=== PATIENT | female | born 1985 | race Caucasian/White ===

== ENCOUNTER → 2017-11-04 | Outpatient (CLI) | payer BC ==
--- NOTE | 2017-11-04 11:03 | US ---
EXAMINATION TYPE: US thyroid st tissue head/neck DATE OF EXAM: 11/04/2017 COMPARISON: 03/01/2015 CLINICAL HISTORY: 31-year-old female E04.2 Nontoxic multinodular goiter. Technique: Multiple sonographic images of the thyroid gland are obtained. FINDINGS: Right Lobe: 4.4 x 1.3 x 1.4 cm Overall Parenchyma: homogenous Left Lobe: 4.9 x 1.1 x 1.9 cm Overall Parenchyma: homogeneous Isthmus Thickness: 0.3 cm NODULES RIGHT: # of nodules measured on right: 1 1. 0.8 X 0.7 x 0.8 cm echogenic solid nodule at the mid pole with well-defined margins. This nodul e is wider than tall and shows intranodular vascularity. Prior size: 1.0 x 0.6 x 0.7 cm LEFT: # of nodules measured on left: 2 1. 1.5 X 0.8 x 1.2 cm isoechoic solid nodule at the lower pole with well-defined margins . This nod ule is wider than tall and shows intranodular vascularity and suggestion of punctate calcifications. Prior size: 1.8 x 1.0 x 1.2 cm 2. 0.9 X 0.4 x 0.8 cm hypoechoic mixed nodule at the mid pole with well-defined margins. This nodul e is wider than tall and shows intranodular vascularity. Prior size: 0.5 x 0.4 x 0.7 cm ISTHMUS: # of nodules measured in the isthmus: 0 Bilateral neck scanned, no evidence of lymphadenopathy. IMPRESSION: 1. Bilateral thyroid nodules, largest measuring 1.5 cm in the left lower pole is decreased from 1.8 c m on 03/01/2015. Suspect that this was sampled on 09/06/2015. 2. A mixed left midpole nodule is slightly larger measuring 9 x 8 mm versus 7 x 5 mm, previously. Fol low-up as indicated.
== END | disposition home or self-care (01) ==
LOC: RADUSWWP 09:00
PROVIDERS: ATTEND Family Medicine
DX: E04.2 Nontoxic multinodular goiter (principal)
CPT/HCPCS: 76536

== ENCOUNTER → 2017-12-19 | Outpatient (CLI) | payer BC ==
[2017-12-19 17:13] LABS: T4, Free (Free Thyroxine) 0.98 ng/dL (0.78-2.19)
== END | disposition home or self-care (01) ==
LOC: LABWHC1 15:54
PROVIDERS: ATTEND Internal Medicine Endocrinology, Diabetes & Metabolism
DX: E04.2 Nontoxic multinodular goiter (principal)
CPT/HCPCS: 36415; 84439; 84443

== ENCOUNTER → 2019-11-27 | Outpatient (CLI) | payer BC ==
--- NOTE | 2019-11-27 13:49 | US ---
EXAMINATION TYPE: US thyroid st tissue head/neck DATE OF EXAM: 11/27/2019 COMPARISON: Prior ultrasound 11/04/2017 CLINICAL HISTORY: E04.2 nontoxic multinodular goiter. Follow up nodules. No thyroid meds. GLAND SIZE: Right Lobe: 4.4 x 1.4 x 1.5 cm Overall Parenchyma: homogenous Left Lobe: 4.4 x 1.6 x 1.3 cm Overall Parenchyma: homogeneous Isthmus Thickness: 0.2 cm NODULES RIGHT: # of nodules measured on right: 1 1. 0.9 X 0.6 x 0.8 cm echogenic nodule at the lower pole with well-defined margins. This nodule is taller than wide and shows intranodular vascularity. Prior size: 0.8 x 0.7 x 0.8 cm LEFT: # of nodules measured on left: 2 1. 1.1 X 1.0 x 0.6 cm isoechoic nodule at the lower pole with well-defined margins. This nodule is wider than tall and shows intranodular vascularity. Prior size: 1.5 x 0.8 x 1.2 cm 2. 0.9 X 0.7 x 0.6 cm hypoechoic nodule at the mid pole with well-defined margins. This nodule is w ider than tall and shows intranodular vascularity. Prior size: 0.9 x 0.4 x 0.8 cm ISTHMUS: # of nodules measured in the isthmus: 0 Bilateral neck scanned, no evidence of lymphadenopathy. IMPRESSION: Findings as above, thyroid nodules are similar in size to prior exam
== END | disposition home or self-care (01) ==
LOC: RADUSMAIN 13:16
PROVIDERS: ATTEND Family Medicine
DX: E04.2 Nontoxic multinodular goiter (principal)
CPT/HCPCS: 76536

== ENCOUNTER 2020-07-15 11:41 | Inpatient (IN) | payer BC ==
--- NOTE | 2020-07-15 12:29 | ED ---
Psych HPI - General Chief Complaint: Psychiatric Symptoms Stated Complaint: Bipolar symptoms Time Seen by Provider: 07/15/20 11:52 Source: patient Mode of arrival: ambulatory - History of Present Illness Initial Comments: Patient is a 34-year-old female presenting to the emergency Department for psychiatric evaluation. Patient states she is diagnosed with bipolar and does take her medication regularly but feels like the last week or so her symptoms have been increasing, she is having more emotional outbursts, very little sleep, very stressed. She states she is also going through a divorce and her work has recently changed and she is having to do a lot more work. Patient denies any alcohol use, drug use. She denies any suicidal or homicidal thoughts. She denies being at this time. She states she occasionally takes Adderall and Xanax which are prescribed to her but does not take these regularly. She has no further complaints at this time. - Related Data Home Medications Medication Instructions Recorded Confirmed ALPRAZolam [Xanax] 0.5 - 1 mg PO DAILY PRN 07/15/20 07/15/20 Dextroamphetamine/Amphetamine 30 mg PO QAM PRN 07/15/20 07/15/20 [Adderall Xr] lamoTRIgine [LaMICtal] 50 mg PO HS 07/15/20 07/15/20 lamoTRIgine [LaMICtal] 200 mg PO HS 07/15/20 07/15/20 Allergies Allergy/AdvReac Type Severity Reaction Status Date / Time No Known Allergies Allergy Verified 07/15/20 12:47 Review of Systems ROS Statement: Those systems with pertinent positive or pertinent negative responses have been documented in the HPI. ROS Other: All systems not noted in ROS Statement are negative. Past Medical History Past Medical History: Thyroid Disorder Additional Past Medical History / Comment(s): recent weight gain 08/2015 History of Any Multi-Drug Resistant Organisms: None Reported Past Surgical History: Tonsillectomy Past Anesthesia/Blood Transfusion Reactions: No Reported Reaction Past Psychological History: Anxiety, Bipolar Smoking Status: Current every day smoker Past Alcohol Use History: Occasional Past Drug Use History: Marijuana - Past Family History Father Family Medical History: Hypertension General Exam - General Exam Comments Initial Comments: GENERAL: Patient is well-developed and well-nourished. Patient is nontoxic and in no acute distress. HEAD: Atraumatic, normocephalic. EYES: Pupils equal round and reactive to light, extraocular movements intact, sclera anicteric, conjunctiva are normal. Eyelids were unremarkable. ENT: TMs normal, nares patent, oropharynx clear without exudates. Moist mucous membranes. NECK: Normal range of motion, supple without lymphadenopathy or JVD. LUNGS: Unlabored respirations. Breath sounds clear to auscultation bilaterally and equal. No wheezes rales or rhonchi. HEART: Regular rate and rhythm without murmurs, rubs or gallops. ABDOMEN: Soft, nontender, normoactive bowel sounds. No guarding, no rebound. No masses appreciated. : Deferred MUSCULOSKELETAL: Normal extremities with adequate strength and normal range of motion, no pitting or edema. No clubbing or cyanosis. NEUROLOGICAL: Patient is alert and oriented x 3. Motor and sensory are also intact. Cranial nerves II through XII grossly intact. Symmetrical smile. Normal speech, normal gait. PSYCH: Normal mood, normal affect. SKIN: Warm, Dry, normal turgor, no rashes or lesions noted. Limitations: no limitations Course Vital Signs 07/15/20 11:44 Temperature 97.9 F Pulse Rate 94 Respiratory 18 Rate Blood Pressure 109/66 O2 Sat by Pulse 100 Oximetry Medical Decision Making - Medical Decision Making Patient is a 34-year-old female, diagnosed with bipolar, presenting for psychiatric evaluation. She denies any suicidal or homicidal thoughts. Her exam is unremarkable. BAT was negative, HCG is not detected, urine drug screen is positive for opiates, amphetamines, benzos, marijuana. Patient was evaluated by EPS and patient will be admitted to the psych unit. - Lab Data Lab Results 07/15/20 07/15/20 Range/Units 12:43 12:43 Urine Color Yellow Urine Appearance Clear (Clear) Urine pH 5.5 (5.0-8.0) Ur Specific [place] 1.024 (1.001-1.035) Urine Protein Negative (Negative) Urine Glucose (UA) Negative (Negative) Urine Ketones Negative (Negative) Urine Blood Negative (Negative) Urine Nitrite Negative (Negative) Urine Bilirubin Negative (Negative) Urine Urobilinogen <2.0 (<2.0) mg/dL Ur Leukocyte Esterase Negative (Negative) Urine HCG, Qual Not Detected (Not Detectd) Urine Opiates Screen Detected H (NotDetected) Ur Oxycodone Screen Not Detected (NotDetected) Urine Methadone Screen Not Detected (NotDetected) Ur Propoxyphene Screen Not Detected (NotDetected) Ur Barbiturates Screen Not Detected (NotDetected) U Tricyclic Antidepress Not Detected (NotDetected) Ur Phencyclidine Scrn Not Detected (NotDetected) Ur Amphetamines Screen Detected H (NotDetected) U Methamphetamines Scrn Not Detected (NotDetected) U Benzodiazepines Scrn Detected H (NotDetected) Urine Cocaine Screen Not Detected (NotDetected) U Marijuana (THC) Screen Detected H (NotDetected) Disposition Clinical Impression: Acute anxiety Disposition: TRANSFER TO PSYCH HOSP/UNIT Condition: Stable Referrals: Jitendra Montgomery DO [Primary Care Provider] - 1-2 days Decision Date: 07/15/20 Decision Time: 17:08
[2020-07-15 12:59] LABS: Appearance,Urine Clear (Clear); Bilirubin,Urine Negative (Negative); Blood,Urine Negative (Negative); Color,Urine Yellow; Glucose,Urine (UA) Negative (Negative); Ketones,Urine Negative (Negative); Leukocyte Esterase,Urine Negative (Negative); Nitrite,Urine Negative (Negative); PH, Urine 5.5 (5.0-8.0); Protein,Urine Negative (Negative); Specific Gravity,Urine 1.024 (1.001-1.035); Urobilinogen,Urine <2.0 mg/dL (<2.0)
[2020-07-15 13:09] LABS: Amphetamine Screen,Urine Detected (NotDetected); Barbiturate Screen,Urine Not Detected (NotDetected); Benzodiazepines Screen,Urine Detected (NotDetected); Cocaine Screen,Urine Not Detected (NotDetected); Methadone Screen, Urine Not Detected (NotDetected); Opiate Screen,Urine Detected (NotDetected); Oxycodone Screen, Urine Not Detected (NotDetected); Phencyclidine Screen,Urine Not Detected (NotDetected); Tricyclic Antidepressant,Urine Not Detected (NotDetected); Urn Cannabinoid Scrn Detected (NotDetected)
[2020-07-15] MEDS ORDERED: MAG HYDROX/AL HYDROX/SIMETH 30 ML CUP PO PRN (17:15)
[2020-07-15] MEDS ORDERED: ACETAMINOPHEN TAB 325 MG TAB PO PRN (17:15)
[2020-07-15] MEDS ORDERED: ZIPRASIDONE 20 MG VIAL IM PRN (17:15)
[2020-07-15] MEDS ORDERED: MAGNESIUM HYDROXIDE 2,400 MG/10 ML CUP PO PRN (17:15)
[2020-07-15] MEDS ORDERED: ALPRAZolam 1 MG TAB PO PRN (17:18)
[2020-07-15] MEDS: NICOTINE 21MG/24HR PATCH TRANSDERM SCH (20:18)
[2020-07-15] MEDS ORDERED: lamoTRIgine 100 MG TAB PO SCH (21:00)
[2020-07-15] MEDS ORDERED: lamoTRIgine 25 MG TAB PO SCH (21:00)
[2020-07-16 08:14] LABS: Basophils % (A) 1 %; Eosinophils # (A) 0.3 k/uL (0-0.7); Eosinophils % (A) 6 %; HCT 45.5 % (34.0-46.0); HGB 14.3 gm/dL (11.4-16.0); Lymphocytes # (A) 2.2 k/uL (1.0-4.8); Lymphocytes % (A) 35 %; MCH 31.5 pg (25.0-35.0); MCHC 31.4 g/dL (31.0-37.0); MCV 100.5 fL (80.0-100.0); Mean Platelet Volume 7.9; Monocytes # (A) 0.4 k/uL (0-1.0); Monocytes % (A) 7 %; Neutrophils # (A) 3.1 k/uL (1.3-7.7); Neutrophils % (A) 50 %; Platelet Count 291 k/uL (150-450); RBC 4.53 m/uL (3.80-5.40); RDW 12.5 % (11.5-15.5); WBC 6.1 k/uL (3.8-10.6)
[2020-07-16 08:25] LABS: ALT 18 U/L (4-34); AST 21 U/L (14-36); African American GFR (CKD) >90 (>60 ml/min/1.73 sqM); Albumin 4.4 g/dL (3.5-5.0); Alkaline Phosphatase 60 U/L (38-126); Anion Gap 4 mmol/L; Blood Urea Nitrogen 13 mg/dL (7-17); Calcium 9.6 mg/dL (8.4-10.2); Carbon Dioxide 29 mmol/L (22-30); Chloride 106 mmol/L (98-107); Cholesterol 188 mg/dL (<200); Glucose 108 mg/dL (74-99); HDL Cholesterol 68 mg/dL (40-60); LDL Cholesterol,Calculated 111 mg/dL (0-99); Non-African American GFR(CKD) >90 (>60 ml/min/1.73 sqM); Potassium 5.2 mmol/L (3.5-5.1); Sodium 139 mmol/L (137-145); Triglycerides 43 mg/dL (<150)
[2020-07-16] MEDS ORDERED: NICOTINE 21MG/24HR PATCH TRANSDERM SCH (09:00)
[2020-07-16] MEDS ORDERED: INFLUENZA VACCINE (6 MOS+) 60 MCG/0.5 ML SYRINGE IM ONE (10:00)
[2020-07-16] MEDS: NICOTINE 21MG/24HR PATCH TRANSDERM SCH ×2 (10:29→12:10)
[2020-07-16 13:08] LABS: Hemoglobin A1C 4.8 % (4.0-6.0)
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
[2020-07-16] MEDS: MELATONIN 5 MG TABLET PO SCH (21:26)
[2020-07-16] MEDS: lamoTRIgine 100 MG TAB PO SCH (21:26)
[2020-07-16] MEDS: traZODone HCL 50 MG TAB PO SCH (21:27)
[2020-07-17] MEDS: NICOTINE 21MG/24HR PATCH TRANSDERM SCH (10:26)
[2020-07-17] MEDS: NICOTINE 14MG/24HR PATCH TRANSDERM SCH (12:05)
--- NOTE | 2020-07-17 13:17 | P.PN ---
Subjective Progress Note Date: 07/17/20 Principal diagnosis: Bipolar II with mixed symptoms of mild racing thoughts and significant depression SUBJECTIVE:She says that she is feeling more stable and hopeful and does not want to adjust medications, but she did let me review that her current medication does not help the racing component of her illness and she might want to consider trileptal. I also suggested that Adderall was dangerous in the possibility of provoking racing thoughts and that she might want a true stabilizer such as trileptal and a smoother stimulant for her ADD such as vyvanse. OBJECTIVE: Vital signs: temp 98.1 resp 16 heart rate 70 blood pressure 100/56 Labs:potassium is slightly high at 5.2 the rest of her hematology and general chem and urinalysis are not concerning but her toxicology was positive for opiates, amphetamines, benzos, and marijuana. STAFF REPORT:she attends group and does well She denies any suicidal or homicidal ideas MENTAL STATUS: Appearance: basic ADL'S adequate Gait and station:normal Speech:normal in rate and volume Eye contact: good Behavior: cooperative Affect:open and appropriate No evidence or acknowlegment of voices or delusions Orientation: good to person place and time and circumstances MEDICATIONS:increased Lamictal to 300 prn Xanax Trazodone 50 and Melatonin 5 which worked well last night ASSESSMENT:patient is cooperative and still too anxious PLAN: no change Objective - Vital Signs Vital signs: Vital Signs Temp 98.1 F 07/17/20 13:05 Pulse 70 07/17/20 05:56 Resp 16 07/17/20 05:56 BP 100/56 07/17/20 05:56 Pulse Ox 96 07/17/20 05:56 Intake & Output 07/16/20 07/17/20 07/17/20 19:59 06:59 18:59 Weight 92.9 kg - Labs CBC & Chem 7: 07/16/20 07:38 07/16/20 07:38
[2020-07-17] MEDS: MELATONIN 5 MG TABLET PO SCH (20:52)
[2020-07-17] MEDS: lamoTRIgine 100 MG TAB PO SCH (20:52)
[2020-07-17] MEDS: traZODone HCL 50 MG TAB PO SCH (20:52)
[2020-07-18] MEDS: NICOTINE 14MG/24HR PATCH TRANSDERM SCH (08:32)
[2020-07-18] MEDS ORDERED: ALPRAZolam 1 MG TAB PO PRN (10:56)
[2020-07-18] MEDS ORDERED: traZODone HCL 50 MG TAB PO PRN (10:58)
[2020-07-18] MEDS: busPIRone HCl 10 MG TAB PO PRN ×2 (11:06→18:36)
--- NOTE | 2020-07-18 11:11 | P.PN ---
Progress Note - Text Progress Note Date: 07/18/20 Interval History: Patient was seen sitting in a group today and was directable and agreeable to speak with senior copywriter in the office. Patient was pleasant and polite with senior copywriter during conversation. 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 She states that she is also experiencing racing thoughts and anxiety during the day. Patient claims that she has been trying to go to groups up or dissipate as best she can. Patient states that her mood has gradually been getting better on the Lamictal and wants to remain the same dose as it was already increased to 300 mg. She states that she did not sleep well last night on the trazodone and states that "I felt restless". She claims that usually she has fair sleep at home. Patient was agreeable to have her melatonin increased. Pumping Plant Operator spoke with patient about other medication options to help her with her mood stabilization and her racing thoughts however patient declined most of them however was acceptable of taking BuSpar as needed for anxiety. She claims she has a fair appetite. At this time patient denies any suicidal or homical ideations, intent or plan. Patient denies any auditory, visual hallucinations and denies any paranoia or delusions. Mental Status Exam: General Appearance: Patient appears to be stated age is alert, directable, and cooperative. Wearing street clothing. Behavior: Patient is calmly seated without any agitated behavior. Speech: Patient's speech is fluent and nonpressured. Mood/Affect: Mood is improving mildly, admits to anxiety, affect is congruent Suicidality/Homicidality: Patient denies having any suicidal or homicidal ideation intent or plan. Perceptions: Patient denies any visual hallucinations and denies any auditory hallucinations Though content/process: There is no evidence of any delusional thought content and thought process is linear and goal-directed. Focused on medications. Memory and concentration: AOX3, grossly intact for the purposes of this session Judgment and insight: Improving mildly Assessment Bipolar disorder, mixed features Anxiety disorder unspecified Cannabis use disorder Nicotine dependence Plan: -Patient continues to meet criteria for inpatient psychiatric admission for symptom stabilization and safety. Patient has signed adult voluntary form and medication consent and was placed in patient's chart. -Medications: Continue Lamictal 300 mg daily at bedtime for mood stabilization, decrease Xanax to 1 mg twice a day when necessary for anxiety. Patient is agreeable to try BuSpar today 10 mg 3 times a day when necessary for anxiety. Increase melatonin to 10 mg daily at bedtime for insomnia. Switched trazodone to 50 mg daily at bedtime when necessary for insomnia. -When necessary xanax and Geodon for agitation/aggression. -NRT - nicotine patch -SW on board for discharge planning. Encouraged the patient to participate in milieu. Likely discharge tomorrow if patient does well overnight.
[2020-07-18] MEDS: lamoTRIgine 100 MG TAB PO SCH (20:05)
[2020-07-18] MEDS ORDERED: MELATONIN 5 MG TABLET PO SCH (21:00)
[2020-07-19 04:28] VITALS: BP 116/65; PULSE 79; RESP 16; TEMP 97.7
[2020-07-19] MEDS: NICOTINE 14MG/24HR PATCH TRANSDERM SCH (08:46)
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
== END 2020-07-19 10:53 | disposition home or self-care (01) | DRG 885 ==
LOC: EC 11:41 → 3MHU 17:10
PROVIDERS: ADMIT Psychiatry & Neurology Psychiatry; ATTEND Psychiatry & Neurology Psychiatry
DX: F31.60 Bipolar disorder, current episode mixed, unspecified (principal); E07.9 Disorder of thyroid, unspecified; F41.9 Anxiety disorder, unspecified; F17.200 Nicotine dependence, unspecified, uncomplicated; F98.8 Other specified behavioral and emotional disorders with onset usually occurring in childhood and adolescence; F12.10 Cannabis abuse, uncomplicated; G47.00 Insomnia, unspecified; Z79.899 Other long term (current) drug therapy; Z98.890 Other specified postprocedural states; Z82.49 Family history of ischemic heart disease and other diseases of the circulatory system
CPT/HCPCS: 80053; 80061; 80306; 81003; 81025; 82075; 83036; 84443; 85025; 90686; 99285

== ENCOUNTER → 2020-07-20 | Outpatient (CLI) | payer BC | END | disposition home or self-care (01) | LOC: LABWHC1 14:11 | PROVIDERS: ATTEND Psychiatry & Neurology Psychiatry | DX: Z20.828 Contact with and (suspected) exposure to other viral communicable diseases (principal) | CPT/HCPCS: U0003; C9803 ==

== ENCOUNTER 2021-01-30 04:09 | Inpatient (IN) | payer BC ==
--- NOTE | 2021-01-30 04:58 | XR ---
EXAM: XR Chest, 2 Views CLINICAL HISTORY: ITS.REASON XR Reason: dyspnea TECHNIQUE: Frontal and lateral views of the chest. COMPARISON: No relevant prior studies available. FINDINGS: Lungs: Mild streaky opacities in the perihilar regions with questionable peribronchial cuffing. The lungs are otherwise clear. The pulmonary vasculature demonstrates no significant radiographic abnormality. Pleural space: Unremarkable. No pneumothorax. No large pleural effusion. Heart: Unremarkable. No cardiomegaly. Mediastinum: Otherwise, no significant abnormality. The trachea is midline. Bones/joints: Hypertrophic osteophyte changes noted anteriorly at several levels. No acute osseous abnormality. Soft tissues: Surgical clips noted at the thoracic inlet bilaterally. IMPRESSION: Mild streaky opacities in the perihilar regions with questionable peribronchial cuffing. Findings may represent subtle interstitial infection, reactive airways disease or bronchiolitis. No lobar consolidation. No large pleural effusion or pneumothorax.
--- NOTE | 2021-01-30 05:35 | ED ---
SOB HPI - General Chief Complaint: Shortness of Breath Stated Complaint: ANGIE Time Seen by Provider: 01/30/21 04:20 Source: patient, family Mode of arrival: wheelchair Limitations: no limitations - History of Present Illness MD Complaint: shortness of breath, cough -: hour(s) Severity: mild Quality: aching Consistency: constant Improves With: nothing Worsens With: nothing Associated Symptoms: cough Treatments Prior to Arrival: none - Related Data Home Medications Medication Instructions Recorded Confirmed Brexpiprazole [Rexulti] 2 mg PO DAILY 01/30/21 01/30/21 busPIRone HCl [Buspar] 20 mg PO BID 01/30/21 01/30/21 lamoTRIgine [LaMICtal] 300 mg PO HS 01/30/21 01/30/21 Previous Rx's Medication Instructions Recorded ALPRAZolam [Xanax] 1 mg PO BID PRN tab 07/19/20 Albuterol Inhaler [Ventolin Hfa 2 puff INHALATION Q6H PRN #1 puff 02/01/21 Inhaler] Azithromycin [Zithromax] 500 mg PO DAILY #3 tab 02/01/21 Allergies Allergy/AdvReac Type Severity Reaction Status Date / Time No Known Allergies Allergy Verified 01/30/21 10:21 Review of Systems ROS Statement: Those systems with pertinent positive or pertinent negative responses have been documented in the HPI. ROS Other: All systems not noted in ROS Statement are negative. Constitutional: Denies: fever, chills Respiratory: Reports: cough, dyspnea Cardiovascular: Denies: chest pain, palpitations, dyspnea on exertion Gastrointestinal: Denies: abdominal pain, nausea, vomiting Genitourinary: Denies: dysuria, hematuria Musculoskeletal: Denies: back pain Skin: Denies: rash Neurological: Reports: headache. Denies: weakness, numbness Past Medical History Past Medical History: Thyroid Disorder Additional Past Medical History / Comment(s): recent weight gain 08/2015 History of Any Multi-Drug Resistant Organisms: None Reported Past Surgical History: Tonsillectomy Past Anesthesia/Blood Transfusion Reactions: No Reported Reaction Past Psychological History: Anxiety, Bipolar, Depression Smoking Status: Former smoker Past Alcohol Use History: Occasional Past Drug Use History: Marijuana - Past Family History Father Family Medical History: Hypertension General Exam Limitations: no limitations General appearance: alert, in no apparent distress Head exam: Present: atraumatic, normocephalic Eye exam: Present: normal appearance. Absent: scleral icterus, conjunctival injection ENT exam: Present: normal oropharynx Respiratory exam: Present: rales. Absent: respiratory distress, wheezes, rhonchi, stridor, chest wall tenderness, accessory muscle use, decreased breath sounds Cardiovascular Exam: Present: regular rate, normal rhythm, normal heart sounds. Absent: systolic murmur, diastolic murmur, rubs, gallop GI/Abdominal exam: Present: soft. Absent: distended, tenderness, guarding, rebound, rigid, mass Extremities exam: Present: normal inspection, normal capillary refill. Absent: pedal edema, calf tenderness Back exam: Present: normal inspection. Absent: CVA tenderness (R), CVA tenderness (L) Neurological exam: Present: alert Skin exam: Present: warm, dry, intact, normal color. Absent: rash Course Vital Signs 01/30/21 01/30/21 01/30/21 04:12 04:20 04:24 Temperature 98.0 F Pulse Rate 101 H Respiratory 20 24 Rate Blood Pressure 118/78 O2 Sat by Pulse 90 L 85 L 92 L Oximetry 01/30/21 01/30/21 01/30/21 04:57 06:00 08:11 Temperature Pulse Rate 98 108 H 103 H Respiratory 20 18 18 Rate Blood Pressure 111/64 100/63 O2 Sat by Pulse 91 L 95 96 Oximetry 01/30/21 08:52 Temperature 98.0 F Pulse Rate 103 H Respiratory 18 Rate Blood Pressure 100/63 O2 Sat by Pulse 96 Oximetry Medical Decision Making - Lab Data Result diagrams: 01/30/21 05:29 01/30/21 05:29 Lab Results 01/30/21 01/30/21 01/30/21 Range/Units 04:29 05:29 05:29 WBC 16.6 H (3.8-10.6) k/uL RBC 4.35 (3.80-5.40) m/uL Hgb 13.1 (11.4-16.0) gm/dL Hct 41.6 (34.0-46.0) % MCV 95.7 (80.0-100.0) fL MCH 30.1 (25.0-35.0) pg MCHC 31.5 (31.0-37.0) g/dL RDW 12.8 (11.5-15.5) % Plt Count 349 (150-450) k/uL MPV 7.3 Neutrophils % 86 % Lymphocytes % 8 % Monocytes % 2 % Eosinophils % 3 % Basophils % 0 % Neutrophils # 14.3 H (1.3-7.7) k/uL Lymphocytes # 1.3 (1.0-4.8) k/uL Monocytes # 0.3 (0-1.0) k/uL Eosinophils # 0.5 (0-0.7) k/uL Basophils # 0.1 (0-0.2) k/uL D-Dimer 0.37 (<0.60) mg/L FEU Sodium (137-145) mmol/L Potassium (3.5-5.1) mmol/L Chloride (98-107) mmol/L Carbon Dioxide (22-30) mmol/L Anion Gap mmol/L BUN (7-17) mg/dL Creatinine (0.52-1.04) mg/dL Est GFR (CKD-EPI)AfAm (>60 ml/min/1.73 sqM) Est GFR (CKD-EPI)NonAf (>60 ml/min/1.73 sqM) Glucose (74-99) mg/dL Lactic Ac Sepsis Rflx Plasma Lactic Acid Nate (0.7-2.0) mmol/L Calcium (8.4-10.2) mg/dL Total Bilirubin (0.2-1.3) mg/dL AST (14-36) U/L ALT (4-34) U/L Alkaline Phosphatase (38-126) U/L NT-Pro-B Natriuret Pep pg/mL Total Protein (6.3-8.2) g/dL Albumin (3.5-5.0) g/dL Procalcitonin (0.02-0.09) ng/mL Coronavirus (PCR) Not Detected (Not Detectd) 01/30/21 01/30/21 01/30/21 Range/Units 05:29 05:29 05:29 WBC (3.8-10.6) k/uL RBC (3.80-5.40) m/uL Hgb (11.4-16.0) gm/dL Hct (34.0-46.0) % MCV (80.0-100.0) fL MCH (25.0-35.0) pg MCHC (31.0-37.0) g/dL RDW (11.5-15.5) % Plt Count (150-450) k/uL MPV Neutrophils % % Lymphocytes % % Monocytes % % Eosinophils % % Basophils % % Neutrophils # (1.3-7.7) k/uL Lymphocytes # (1.0-4.8) k/uL Monocytes # (0-1.0) k/uL Eosinophils # (0-0.7) k/uL Basophils # (0-0.2) k/uL D-Dimer (<0.60) mg/L FEU Sodium 139 (137-145) mmol/L Potassium 3.9 (3.5-5.1) mmol/L Chloride 104 (98-107) mmol/L Carbon Dioxide 26 (22-30) mmol/L Anion Gap 9 mmol/L BUN 16 (7-17) mg/dL Creatinine 0.73 (0.52-1.04) mg/dL Est GFR (CKD-EPI)AfAm >90 (>60 ml/min/1.73 sqM) Est GFR (CKD-EPI)NonAf >90 (>60 ml/min/1.73 sqM) Glucose 118 H (74-99) mg/dL Lactic Ac Sepsis Rflx Plasma Lactic Acid Nate 2.1 H* (0.7-2.0) mmol/L Calcium 9.2 (8.4-10.2) mg/dL Total Bilirubin 0.5 (0.2-1.3) mg/dL AST 22 (14-36) U/L ALT 21 (4-34) U/L Alkaline Phosphatase 80 (38-126) U/L NT-Pro-B Natriuret Pep 480 pg/mL Total Protein 5.7 L (6.3-8.2) g/dL Albumin 3.5 (3.5-5.0) g/dL Procalcitonin (0.02-0.09) ng/mL Coronavirus (PCR) (Not Detectd) 01/30/21 01/30/21 01/30/21 Range/Units 06:17 08:15 09:06 WBC (3.8-10.6) k/uL RBC (3.80-5.40) m/uL Hgb (11.4-16.0) gm/dL Hct (34.0-46.0) % MCV (80.0-100.0) fL MCH (25.0-35.0) pg MCHC (31.0-37.0) g/dL RDW (11.5-15.5) % Plt Count (150-450) k/uL MPV Neutrophils % % Lymphocytes % % Monocytes % % Eosinophils % % Basophils % % Neutrophils # (1.3-7.7) k/uL Lymphocytes # (1.0-4.8) k/uL Monocytes # (0-1.0) k/uL Eosinophils # (0-0.7) k/uL Basophils # (0-0.2) k/uL D-Dimer (<0.60) mg/L FEU Sodium (137-145) mmol/L Potassium (3.5-5.1) mmol/L Chloride (98-107) mmol/L Carbon Dioxide (22-30) mmol/L Anion Gap mmol/L BUN (7-17) mg/dL Creatinine (0.52-1.04) mg/dL Est GFR (CKD-EPI)AfAm (>60 ml/min/1.73 sqM) Est GFR (CKD-EPI)NonAf (>60 ml/min/1.73 sqM) Glucose (74-99) mg/dL Lactic Ac Sepsis Rflx Y Plasma Lactic Acid Nate 1.5 (0.7-2.0) mmol/L Calcium (8.4-10.2) mg/dL Total Bilirubin (0.2-1.3) mg/dL AST (14-36) U/L ALT (4-34) U/L Alkaline Phosphatase (38-126) U/L NT-Pro-B Natriuret Pep pg/mL Total Protein (6.3-8.2) g/dL Albumin (3.5-5.0) g/dL Procalcitonin (0.02-0.09) ng/mL Coronavirus (PCR) Not Detected (Not Detectd) 01/31/21 Range/Units 05:55 WBC (3.8-10.6) k/uL RBC (3.80-5.40) m/uL Hgb (11.4-16.0) gm/dL Hct (34.0-46.0) % MCV (80.0-100.0) fL MCH (25.0-35.0) pg MCHC (31.0-37.0) g/dL RDW (11.5-15.5) % Plt Count (150-450) k/uL MPV Neutrophils % % Lymphocytes % % Monocytes % % Eosinophils % % Basophils % % Neutrophils # (1.3-7.7) k/uL Lymphocytes # (1.0-4.8) k/uL Monocytes # (0-1.0) k/uL Eosinophils # (0-0.7) k/uL Basophils # (0-0.2) k/uL D-Dimer (<0.60) mg/L FEU Sodium (137-145) mmol/L Potassium (3.5-5.1) mmol/L Chloride (98-107) mmol/L Carbon Dioxide (22-30) mmol/L Anion Gap mmol/L BUN (7-17) mg/dL Creatinine (0.52-1.04) mg/dL Est GFR (CKD-EPI)AfAm (>60 ml/min/1.73 sqM) Est GFR (CKD-EPI)NonAf (>60 ml/min/1.73 sqM) Glucose (74-99) mg/dL Lactic Ac Sepsis Rflx Plasma Lactic Acid Nate (0.7-2.0) mmol/L Calcium (8.4-10.2) mg/dL Total Bilirubin (0.2-1.3) mg/dL AST (14-36) U/L ALT (4-34) U/L Alkaline Phosphatase (38-126) U/L NT-Pro-B Natriuret Pep pg/mL Total Protein (6.3-8.2) g/dL Albumin (3.5-5.0) g/dL Procalcitonin 0.36 H (0.02-0.09) ng/mL Coronavirus (PCR) (Not Detectd) - EKG Data -: EKG Interpreted by Me EKG shows normal: sinus rhythm, axis (Normal), intervals (Normal), QRS complexes (Normal), ST-T waves (Normal) Rate: tachycardia (Rate 101 bpm) Disposition Clinical Impression: Pneumonia Disposition: ADMITTED IP TO THIS HOSP Condition: Fair
[2021-01-30 05:45] LABS: Basophils # (A) 0.1 k/uL (0-0.2); Basophils % (A) 0 %; Eosinophils # (A) 0.5 k/uL (0-0.7); Eosinophils % (A) 3 %; HCT 41.6 % (34.0-46.0); HGB 13.1 gm/dL (11.4-16.0); Lymphocytes # (A) 1.3 k/uL (1.0-4.8); Lymphocytes % (A) 8 %; MCH 30.1 pg (25.0-35.0); MCHC 31.5 g/dL (31.0-37.0); MCV 95.7 fL (80.0-100.0); Mean Platelet Volume 7.3; Monocytes # (A) 0.3 k/uL (0-1.0); Monocytes % (A) 2 %; Neutrophils # (A) 14.3 k/uL (1.3-7.7); Neutrophils % (A) 86 %; Platelet Count 349 k/uL (150-450); RBC 4.35 m/uL (3.80-5.40); RDW 12.8 % (11.5-15.5); WBC 16.6 k/uL (3.8-10.6)
[2021-01-30 06:16] LABS: ALT 21 U/L (4-34); AST 22 U/L (14-36); African American GFR (CKD) >90 (>60 ml/min/1.73 sqM); Albumin 3.5 g/dL (3.5-5.0); Alkaline Phosphatase 80 U/L (38-126); Anion Gap 9 mmol/L; Blood Urea Nitrogen 16 mg/dL (7-17); Calcium 9.2 mg/dL (8.4-10.2); Carbon Dioxide 26 mmol/L (22-30); Chloride 104 mmol/L (98-107); Glucose 118 mg/dL (74-99); Non-African American GFR(CKD) >90 (>60 ml/min/1.73 sqM); Potassium 3.9 mmol/L (3.5-5.1); Sodium 139 mmol/L (137-145); Total Bilirubin 0.5 mg/dL (0.2-1.3); Total Protein 5.7 g/dL (6.3-8.2)
[2021-01-30] MEDS ORDERED: AZITHROMYCIN 500 MG TAB PO STA (06:48)
[2021-01-30] MEDS ORDERED: SODIUM CHLORIDE 0.9% 500 ML 500 ML IV STA (06:48)
[2021-01-30] MEDS ORDERED: PNEUMONIA PROTOCOL UTILIZED 1 EACH MISC PO PRN (08:23)
[2021-01-30] MEDS ORDERED: IBUPROFEN 400 MG TAB PO STA (08:46)
[2021-01-30] MEDS: SODIUM CHLORIDE 0.9% 1,000 ML IV SCH ×3 (09:01→19:47)
[2021-01-30] MEDS ORDERED: ALPRAZolam 1 MG TAB PO PRN (12:25)
[2021-01-30] MEDS: ENOXAPARIN 40 MG/0.4 ML SYRINGE SQ SCH (13:13)
[2021-01-30] MEDS: busPIRone HCl 10 MG TAB PO SCH ×2 (13:14→19:58)
[2021-01-30] MEDS ORDERED: ALBUTEROL NEBULIZED 2.5 MG/3 ML INHALATION SCH (13:25)
--- NOTE | 2021-01-30 13:29 | P.HPIM ---
History of Present Illness H&P Date: 01/30/21 Chief Complaint: Shortness of breath History of presenting complaint: This is a pleasant 35-year-old patient of Dr. Montgomery. Patient woke up around 1:00 this morning, with increasing shortness of breath and significant coughing. Denied any headache or body aches. Denied any obvious fever or chills. Patient had a first vaccine short of COVID 19 on January 14. [place] a bit tired and rundown. Denies been exposed to anybody with COVID. Patient then presented to the ER. Still has some cough. A bit chesty. No calf pain. swelling. Review of systems: GEN.: Tired EYES: None HEENT: None NECK: None RESPIRATORY: As above CARDIOVASCULAR: None GASTROINTESTINAL: None GENITOURINARY: None MUSCULOSKELETAL: None LYMPHATICS: None HEMATOLOGICAL: None PSYCHIATRY: None NEUROLOGICAL: None Past medical history to include: Thyroid nodules, bipolar, anxiety Social history: Drinks alcohol occasionally. Marijuana occasionally. Patient smoked from was 17 years stopped 2 months ago. Lives alone. 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 Physical examination: VITAL SIGNS: 98, 101, 24, 118/78, 90% on room air GENERAL: BMI 34.5, reclining in bed, awake. EYES: Pupils equal. Conjunctiva normal. HEENT: External appearance of nose and ears normal, oral cavity grossly normal. NECK: JVD not raised; masses not palpable. HEART: First and second heart sounds are normal; no edema. LUNGS: Respiratory rate increased; mild wheezing. ABDOMEN: Soft, nontender, liver spleen not palpable, no masses palpable. PSYCH: Alert and oriented x3; mood and affect normal. NEUROLOGICAL: Cranial nerves grossly intact; no facial asymmetry, power and sensation grossly intact. LYMPHATICS: No lymph nodes palpable in the axilla and neck INVESTIGATIONS, reviewed in the clinical context: WBC 16.6 hemoglobin 13.1 platelets 349 potassium 3.9 creatinine 0.73 Lactic acid 2.1 proBNP 480 Coronavirus [PCR]-not detected EKG tracing personally reviewed by me-normal sinus rhythm, rate 101 Chest x-ray film, personally reviewed by me: Scant infiltrate Assessment and plan: -Probable pneumonia and/or tracheobronchitis possibly bacteria, suspect gram- negative organism. Patient has subtle x-ray changes in the clinical symptoms. Start IV ceftriaxone, Zithromax -Acute bronchospasm from above Scheduled albuterol nebulizer -Obesity BMI 34.5 Weight loss measures, and follow up with PCP -Bipolar disorder, controlled Continue home medications Patient clinical picture is not compatible with COVID 19. If it does come back positive most likely dami symptomatic with an acute bacterial infection. Add Lovenox for DVT prophylaxis. IV fluids. Encouraged to ambulate as tolerated. Past Medical History Past Medical History: Thyroid Disorder Additional Past Medical History / Comment(s): THYROID NODULES History of Any Multi-Drug Resistant Organisms: None Reported Past Surgical History: Adenoidectomy, Tonsillectomy Past Anesthesia/Blood Transfusion Reactions: No Reported Reaction Past Psychological History: Anxiety, Bipolar, Depression Smoking Status: Former smoker Past Alcohol Use History: Occasional Past Drug Use History: Marijuana - Past Family History Father Family Medical History: Hypertension Medications and Allergies Home Medications Medication Instructions Recorded Confirmed Type ALPRAZolam [Xanax] 1 mg PO BID PRN tab 07/19/20 01/30/21 Rx Brexpiprazole [Rexulti] 2 mg PO DAILY 01/30/21 01/30/21 History busPIRone HCl [Buspar] 20 mg PO BID 01/30/21 01/30/21 History lamoTRIgine [LaMICtal] 300 mg PO HS 01/30/21 01/30/21 History Allergies Allergy/AdvReac Type Severity Reaction Status Date / Time No Known Allergies Allergy Verified 01/30/21 10:21 Physical Exam Vitals: Vital Signs Temp Pulse Pulse Resp BP BP Pulse Ox 01/30/21 09:35 98.1 F 96 20 122/79 96 01/30/21 08:52 98.0 F 103 H 18 100/63 96 01/30/21 08:11 103 H 18 100/63 96 01/30/21 06:00 108 H 18 111/64 95 01/30/21 04:57 98 20 91 L 01/30/21 04:24 92 L 01/30/21 04:20 24 85 L 01/30/21 04:12 98.0 F 101 H 20 118/78 90 L Intake and Output 01/29/21 01/30/21 01/30/21 22:59 06:59 14:59 Other: Weight 99.79 kg 99.79 kg Results CBC & Chem 7: 01/30/21 05:29 01/30/21 05:29 Labs: Abnormal Lab Results - Last 24 Hours (Table) 01/30/21 01/30/21 01/30/21 Range/Units 05:29 05:29 05:29 WBC 16.6 H (3.8-10.6) k/uL Neutrophils # 14.3 H (1.3-7.7) k/uL Glucose 118 H (74-99) mg/dL Plasma Lactic Acid Nate 2.1 H* (0.7-2.0) mmol/L Total Protein 5.7 L (6.3-8.2) g/dL Thrombosis Risk Factor Assmnt - Choose All That Apply Any of the Below Risk Factors Present?: Yes Each Factor Represents 1 point: Obesity (BMI >25) Thrombosis Risk Factor Assessment Total Risk Factor Score: 1 Thrombosis Risk Factor Assessment Level: Low Risk
[2021-01-30] MEDS: NON FORMULARY DRUG (Brexpiprazole [Rexulti] 1 MG Tablet) PO SCH (13:31)
[2021-01-30] MEDS: ALBUTEROL HFA INHALER INHALATION SCH ×3 (14:02→19:39)
[2021-01-30] MEDS: ACETAMINOPHEN TAB 500 MG TAB PO PRN (17:56)
[2021-01-30] MEDS: lamoTRIgine 100 MG TAB PO SCH (19:58)
[2021-01-31] MEDS: ACETAMINOPHEN TAB 500 MG TAB PO PRN ×2 (00:09→06:05)
[2021-01-31] MEDS: SODIUM CHLORIDE 0.9% 1,000 ML IV SCH (03:53)
--- NOTE | 2021-01-31 06:33 | XR ---
EXAMINATION TYPE: XR chest 2V DATE OF EXAM: 01/31/2021 COMPARISON: Chest x-ray from yesterday. HISTORY: Pneumonia, abnormal x-ray TECHNIQUE: Frontal and lateral views of the chest are obtained. FINDINGS: There is no new suspicious focal air space opacity, pleural effusion, or pneumothorax seen bilaterally. Stable mild central peribronchial cuffing. The cardiac silhouette size is stable and w ithin normal limits. The osseous structures remain intact. IMPRESSION: Mild central peribronchial cuffing consistent with reactive airway disease possibly from a viral bronchiolitis. No new focal infiltrate. No significant change from one day earlier.
[2021-01-31] MEDS: busPIRone HCl 10 MG TAB PO SCH ×2 (08:01→21:01)
[2021-01-31] MEDS: AZITHROMYCIN 500 MG TAB PO SCH (08:01)
[2021-01-31] MEDS: ENOXAPARIN 40 MG/0.4 ML SYRINGE SQ SCH (08:01)
[2021-01-31] MEDS: ALBUTEROL HFA INHALER INHALATION SCH ×4 (08:14→19:56)
[2021-01-31] MEDS: NON FORMULARY DRUG (Brexpiprazole [Rexulti] 1 MG Tablet) PO SCH (10:04)
--- NOTE | 2021-01-31 15:56 | P.PN ---
Progress Note - Text Progress Note Date: 01/31/21 Chief Complaint: Shortness of breath History of presenting complaint: This is a pleasant 35-year-old patient of Dr. Montgomery. Patient woke up around 1:00 this morning, with increasing shortness of breath and significant coughing. Denied any headache or body aches. Denied any obvious fever or chills. Patient had a first vaccine short of COVID 19 on January 14. [place] a bit tired and rundown. Denies been exposed to anybody with COVID. Patient then presented to the ER. Still has some cough. A bit chesty. No calf pain. swelling. Admitted with pneumonia. Started on IV ceftriaxone and Zithromax. Today: Breathing better. Appetite is better. Cough is better. Mother at the bedside. Review of systems: Was done for constitutional, cardiovascular, GI, pulmonary. relevant finding as above Active Medications Acetaminophen (Acetaminophen Tab 500 Mg Tab) 500 mg PO Q6HR PRN PRN Reason: Fever and/ or Mild Pain Last Admin: 01/31/21 06:05 Dose: 500 mg Documented by: Albuterol Sulfate (Albuterol Hfa Inhaler) 2 puff INHALATION RT-QID [facility] Last Admin: 01/31/21 15:40 Dose: Not Given Documented by: Alprazolam (Alprazolam 1 Mg Tab) 1 mg PO BID PRN PRN Reason: Anxiety Azithromycin (Azithromycin 500 Mg Tab) 500 mg PO DAILY [facility] Stop: 02/04/21 09:01 Last Admin: 01/31/21 08:01 Dose: 500 mg Documented by: Buspirone HCl (Buspirone Hcl 10 Mg Tab) 20 mg PO BID [facility] Last Admin: 01/31/21 08:01 Dose: 20 mg Documented by: Enoxaparin Sodium (Enoxaparin 40 Mg/0.4 Ml Syringe) 40 mg SQ DAILY [facility] Last Admin: 01/31/21 08:01 Dose: 40 mg Documented by: Sodium Chloride (Saline 0.9%) 1,000 mls @ 100 mls/hr IV .Q10H [facility] Last Admin: 01/31/21 03:53 Dose: 100 mls/hr Documented by: Ceftriaxone Sodium 2 gm/ (Sodium Chloride) 50 mls @ 100 mls/hr IVPB Q24HR [facility] Stop: 02/02/21 09:01 Last Admin: 01/31/21 08:00 Dose: 100 mls/hr Documented by: Lamotrigine (Lamotrigine 100 Mg Tab) 300 mg PO [facility] Last Admin: 01/30/21 19:58 Dose: 300 mg Documented by: Miscellaneous Information (Pneumonia Protocol Utilized 1 Each [facility]) 1 each PO ONCE PRN PRN Reason: Per Protocol Non-Formulary Medication (Brexpiprazole [Rexulti]) 2 mg PO DAILY [facility] Last Admin: 01/31/21 10:04 Dose: Not Given Documented by: Past medical history to include: Thyroid nodules, bipolar, anxiety Social history: Drinks alcohol occasionally. Marijuana occasionally. Patient smoked from was 17 years stopped 2 months ago. Lives alone. 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 Physical examination: VITAL SIGNS: 98.2, 88, 16, 137/87, 97% on room air GENERAL: Sitting up in bed, looking more comfortable EYES: Pupils equal. Conjunctiva normal. HEENT: External appearance of nose and ears normal, oral cavity grossly normal. NECK: JVD not raised; masses not palpable. HEART: First and second heart sounds are normal; no edema. LUNGS: Respiratory rate increased; decreased wheezing. ABDOMEN: Soft, nontender, liver spleen not palpable, no masses palpable. PSYCH: Alert and oriented x3; mood and affect normal. INVESTIGATIONS, reviewed in the clinical context: January 31: Pro-calcitonin 0.36 WBC 16.6 hemoglobin 13.1 platelets 349 potassium 3.9 creatinine 0.73 Lactic acid 2.1 proBNP 480 Coronavirus [PCR]-not detected EKG tracing personally reviewed by me-normal sinus rhythm, rate 101 Chest x-ray film, personally reviewed by me: Scant infiltrate Assessment and plan: -Probable pneumonia and/or tracheobronchitis possibly bacteria, suspect gram- negative organism. -Improving IV ceftriaxone, Zithromax -Acute bronchospasm from above Scheduled albuterol nebulizer -Obesity BMI 34.5 Weight loss measures, and follow up with PCP -Bipolar disorder, controlled Continue home medications Doing better. Repeat procalcitonin in the morning. Encourage patient to ambulate. Hopefully home tomorrow.
[2021-01-31] MEDS: lamoTRIgine 100 MG TAB PO SCH (21:01)
[2021-02-01] MEDS: SODIUM CHLORIDE 0.9% 1,000 ML IV SCH ×2 (02:23→09:18)
[2021-02-01 09:16] VITALS: BP 114/74; PULSE 88; RESP 18; TEMP 97.8
[2021-02-01] MEDS: ALBUTEROL HFA INHALER INHALATION SCH ×2 (09:16→12:02)
[2021-02-01] MEDS: AZITHROMYCIN 500 MG TAB PO SCH (09:22)
[2021-02-01] MEDS: ENOXAPARIN 40 MG/0.4 ML SYRINGE SQ SCH (09:22)
[2021-02-01] MEDS: busPIRone HCl 10 MG TAB PO SCH (09:22)
[2021-02-01] MEDS: NON FORMULARY DRUG (Brexpiprazole [Rexulti] 1 MG Tablet) PO SCH (09:23)
--- NOTE | 2021-02-01 19:27 | P.DS ---
Providers Date of admission: 01/31/21 15:15 Expected date of discharge: 02/01/21 Attending physician: Amos Heredia Primary care physician: Jitendra Montgomery [facility] Course: Chief Complaint: Shortness of breath History of presenting complaint: This is a pleasant 35-year-old patient of Dr. Montgomery. Patient woke up around 1:00 this morning, with increasing shortness of breath and significant coughing. Denied any headache or body aches. Denied any obvious fever or chills. Patient had a first vaccine short of COVID 19 on January 14. [place] a bit tired and rundown. Denies been exposed to anybody with COVID. Patient then presented to the ER. Still has some cough. A bit chesty. No calf pain. swelling. Admitted with pneumonia. Started on IV ceftriaxone and Zithromax. Patient had elevated procalcitonin. Today: Feeling much better. Some cough. Minimal rattling in the chest. Oral intake good. Pulse ox 100% on room air. Has been up and about. Care was discussed at length with the patient. Questions answered. Also discussed her anxiety medications and talked about mindfulness. Discussion and discharge planning more than 35 minutes Past medical history to include: Thyroid nodules, bipolar, anxiety Social history: Drinks alcohol occasionally. Marijuana occasionally. Patient smoked from was 17 years stopped 2 months ago. Lives alone. 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 Conjunctiva normal. HEENT: External appearance of nose and ears normal, oral cavity grossly normal. NECK: JVD not raised; masses not palpable. HEART: First and second heart sounds are normal; no edema. LUNGS: Respiratory rate increased; decreased wheezing. ABDOMEN: Soft, nontender, liver spleen not palpable, no masses palpable. PSYCH: Alert and oriented x3; mood and affect normal. INVESTIGATIONS, reviewed in the clinical context: February 01: Procalcitonin 0.19 January 31: Pro-calcitonin 0.36 WBC 16.6 hemoglobin 13.1 platelets 349 potassium 3.9 creatinine 0.73 Lactic acid 2.1 proBNP 480 Coronavirus [PCR]-not detected EKG tracing personally reviewed by me-normal sinus rhythm, rate 101 Chest x-ray film, personally reviewed by me: Scant infiltrate Assessment and plan: -Probable pneumonia, suspect gram-negative organism. -Responded well IV ceftriaxone, Zithromax. Will complete a 3 day course of Zithromax. -Acute bronchospasm from above Scheduled albuterol nebulizer -Obesity BMI 34.5 Weight loss measures, and follow up with PCP -Bipolar disorder, controlled Continue home medications Disposition: Home Patient Condition at Discharge: Fair Plan - Discharge Summary Discharge Rx Participant: No New Discharge Prescriptions: New Albuterol Inhaler [Ventolin Hfa Inhaler] 2 puff INHALATION Q6H PRN #1 puff PRN Reason: Bronchospasm Azithromycin [Zithromax] 500 mg PO DAILY #3 tab Continue ALPRAZolam [Xanax] 1 mg PO BID PRN tab PRN Reason: Anxiety lamoTRIgine [LaMICtal] 300 mg PO HS busPIRone HCl [Buspar] 20 mg PO BID Brexpiprazole [Rexulti] 2 mg PO DAILY Discharge Medication List ALPRAZolam [Xanax] 1 mg PO BID PRN tab 07/19/20 [Rx] Brexpiprazole [Rexulti] 2 mg PO DAILY 01/30/21 [History] busPIRone HCl [Buspar] 20 mg PO BID 01/30/21 [History] lamoTRIgine [LaMICtal] 300 mg PO HS 01/30/21 [History] Albuterol Inhaler [Ventolin Hfa Inhaler] 2 puff INHALATION Q6H PRN #1 puff 02/01/21 [Rx] Azithromycin [Zithromax] 500 mg PO DAILY #3 tab 02/01/21 [Rx] Follow up Appointment(s)/Referral(s): Jitendra Montgomery DO [Primary Care Provider] - 1-2 days Patient Instructions/Handouts: Pneumonia (DC) Activity/Diet/Wound Care/Special Instructions: Any worsening symptoms or difficulty breathing return to ER. Monitor for fever, chills, signs of infectin and report to your DR. Finish antibiotics until all gone even if you start feeling better.
== END 2021-02-01 12:10 | disposition home or self-care (01) | DRG 179 ==
LOC: EC 04:09 → 6PED 08:23 → OBSVTOIN 01-31 15:15
PROVIDERS: ADMIT Hospitalist; ATTEND Hospitalist
DX: J15.6 Pneumonia due to other Gram-negative bacteria (principal); E04.2 Nontoxic multinodular goiter; E66.9 Obesity, unspecified; F31.9 Bipolar disorder, unspecified; F41.9 Anxiety disorder, unspecified; J98.01 Acute bronchospasm; Z68.34 Body mass index [BMI] 34.0-34.9, adult; Z79.899 Other long term (current) drug therapy; Z60.2 Problems related to living alone; Z87.891 Personal history of nicotine dependence; Z20.822 Contact with and (suspected) exposure to COVID-19
CPT/HCPCS: 36415; 71046; 80053; 83605; 83880; 84145; 85025; 85379; 87040; 87070; 87086; 87205; 87635; 93005; 94640; 99285

== ENCOUNTER → 2021-02-15 | Outpatient (CLI) | payer BC ==
[2021-02-16 01:15] LABS: Basophils # (A) 0.05 X 10*3/uL (0.00-0.10); Basophils % (A) 0.6 %; Eosinophils # (A) 0.41 X 10*3/uL (0.04-0.35); Eosinophils % (A) 5.2 %; Lymphocytes # (A) 2.05 X 10*3/uL (0.90-5.00); Lymphocytes % (A) 26.2 %; MCH 31.3 pg (27.0-32.0); MCHC 32.5 g/dL (32.0-37.0); MCV 96.4 fL (80.0-97.0); Mean Platelet Volume 10.9 fL (9.5-12.2); Monocytes # (A) 0.61 X 10*3/uL (0.20-1.00); Monocytes % (A) 7.8 %; Neutrophils % (A) 60.1 %; Platelet Count 370 X 10*3/uL (140-440); RBC 4.15 X 10*6/uL (4.10-5.20); RDW 12.9 % (11.5-14.5); WBC 7.83 X 10*3/uL (4.50-10.00)
[2021-02-16 02:15] LABS: Hemoglobin A1C 5.2 % (4.0-6.0)
--- NOTE | 2021-02-16 08:20 | XR ---
EXAMINATION TYPE: XR chest 2V DATE OF EXAM: 02/15/2021 COMPARISON: 01/31/2021 INDICATION: Pneumonia x2 weeks TECHNIQUE: Frontal and lateral views of the chest are obtained. FINDINGS: The heart size is normal. The pulmonary vasculature is normal. The lungs are clear. IMPRESSION: 1. No acute pulmonary process.
[2021-02-16 20:16] LABS: T4, Free (Free Thyroxine) 1.2 ng/dL (0.80-1.80)
== END | disposition home or self-care (01) ==
LOC: LABWHC1 16:12
PROVIDERS: ATTEND Family Medicine
DX: J18.9 Pneumonia, unspecified organism (principal); E04.1 Nontoxic single thyroid nodule; E66.9 Obesity, unspecified
CPT/HCPCS: 36415; 71046; 83036; 84439; 84443; 85025

== ENCOUNTER → 2021-03-16 | Outpatient (CLI) | payer BC ==
--- NOTE | 2021-03-16 14:46 | US ---
EXAMINATION TYPE: US thyroid st tissue head/neck DATE OF EXAM: 03/16/2021 COMPARISON: NONE CLINICAL HISTORY: E04.1 Thyroid nodule. Thyroid nodule GLAND SIZE: Right Lobe: 5.2 x 1.5 x 1.9 cm Overall Parenchyma: homogenous Left Lobe: 5.6 x 1.2 x 1.8 cm Overall Parenchyma: homogeneous Isthmus Thickness: 0.3 cm NODULES RIGHT: # of nodules measured on right: 1 1. 0.9 X 0.8 x 0.8 cm, lower , solid, isoechoic somewhat spongiform nodule, which is wider than bhumika l, with smooth margins, without echogenic foci. Prior size: 0.9 x 0.6 x 0.8 cm LEFT: # of nodules measured on left: 2 1. 1.3 X 0.9 x 1.2 cm, lower , solid, isoechoic nodule, which is wider than tall, with ill-defined margins, with coarse calcifications Prior size: 1.1 x 1.0 x 0.6 cm 2. 1.0 X 0.6 x 0.8 cm, mid, mixed, hypoechoic nodule, which is wider than tall, with smooth margin s, echogenic foci. Prior size: 0.9 x 0.7 x 0.6 cm ISTHMUS: # of nodules measured in the isthmus: 0 Bilateral neck scanned, no evidence of lymphadenopathy. IMPRESSION: 1. Somewhat spongiform isoechoic nodule in the right lobe measuring up to 9 mm is stable. 2. 2 nodules in the left lobe of. There is a mixed cystic/solid nodule measuring up to 1 cm. This is stable. This is a TI-RADS 3 nodule. There is a isoechoic nodule which is solid with coarse calcificat ions measuring up to 1.3 cm. This is larger than prior exam. This is a TI-RADS 4 nodule. Continued so nographic follow-up is recommended. 2017 ACR TI-RADS LEVEL: 4 *Highest TI-RADS level nodule reported
== END | disposition home or self-care (01) ==
LOC: RADUSWWP 13:32
PROVIDERS: ATTEND Family Medicine
DX: E04.2 Nontoxic multinodular goiter (principal)
CPT/HCPCS: 76536

== ENCOUNTER → 2021-11-24 | Outpatient (CLI) | payer BC ==
--- NOTE | 2021-11-25 10:57 | US ---
EXAMINATION TYPE: US thyroid st tissue head/neck DATE OF EXAM: 11/24/2021 COMPARISON: US CLINICAL HISTORY: E04.2 nontoxic multinodular goiter. Follow up US. GLAND SIZE: Right Lobe: 4.9 x 1.7 x 1.4 cm Overall Parenchyma: homogenous Left Lobe: 5.5 x 1.7 x 1.2 cm Overall Parenchyma: homogeneous Isthmus Thickness: 0.3 cm NODULES RIGHT: # of nodules measured on right: 2 1. 0.9 X 0.7 x 0.8 cm, mid pole, almost completely solid, isoechoic nodule, which is taller than wi de, with ill-defined margins, without echogenic foci. Prior size: 0.9 x 0.8 x 0.8 cm 2. 0.5 X 0.3 x 0.4 cm, lower pole, almost completely cystic, very hypoechoic nodule, which is talle r than wide, with irregular margins, with echogenic wall foci. Prior size: not previously seen LEFT: # of nodules measured on left: 2 1. 1.0 X 0.9 x 0.6 cm, mid lateral pole, spongiform, hypoechoic nodule, which is wider than tall, w ith irregular margins, with echogenic foci. Prior size: 1.0 x 0.8 x 0.6 cm 2. 1.4 X 1.1 x 0.7 cm, lower pole, solid or almost completely solid, hypoechoic nodule, which is w ider than tall, with ill-defined margins, with echogenic foci. Prior size: 1.3 x 1.2 x 0.9 cm ISTHMUS: # of nodules measured in the isthmus: 0 Bilateral neck scanned: no evidence of lymphadenopathy. IMPRESSION: Thyromegaly with stable bilateral multinodular thyroid. 2017 ACR TI-RADS LEVEL: TR-RADS 4 - Moderately Suspicious: Follow if > 1 cm, FNA if > 1.5 cm *Highest TI-RADS level nodule reported
== END | disposition home or self-care (01) ==
LOC: RADUSWWP 15:49
PROVIDERS: ATTEND Family Medicine
DX: E04.2 Nontoxic multinodular goiter (principal)
CPT/HCPCS: 76536

== ENCOUNTER → 2022-01-12 | Outpatient (CLI) | payer OTHER ==
--- NOTE | 2022-01-12 16:44 | XR ---
EXAMINATION TYPE: XR knee complete RT DATE OF EXAM: 01/12/2022 COMPARISON: NONE HISTORY: Pain TECHNIQUE: 3 views FINDINGS: Joint spaces are normal. There is no sign of fracture nor dislocation. There is no sign of joint effusion. IMPRESSION: Normal right knee exam.
--- NOTE | 2022-01-12 16:48 | XR ---
EXAMINATION TYPE: XR tibia fibula RT DATE OF EXAM: 01/12/2022 COMPARISON: NONE HISTORY: Pain TECHNIQUE: 4 views FINDINGS: Tibia and fibula appear intact. I see no fracture nor dislocation. Knee joint and ankle chito nt appear intact. IMPRESSION: Negative right tibia and fibula exam.
== END | disposition home or self-care (01) ==
LOC: RADXRMAIN 16:10
PROVIDERS: ATTEND Emergency Medicine
DX: M25.561 Pain in right knee (principal)

== ENCOUNTER → 2022-01-12 | Outpatient (CLI) | payer BC, OTHER ==
--- NOTE | 2022-01-12 16:09 | US ---
EXAMINATION TYPE: US venous doppler duplex LE RT DATE OF EXAM: 01/12/2022 3:39 PM COMPARISON: NONE CLINICAL HISTORY: S83.91XA, S86.111A, M79.661 PAIN IN RIGHT LOWER LEG. Right leg pain following strai n of right leg running yesterday SIDE PERFORMED: Right TECHNIQUE: The lower extremity deep venous system is examined utilizing real time linear array sonog mally with graded compression, doppler sonography and color-flow sonography. VESSELS IMAGED: Common Femoral Vein Deep Femoral Vein Greater Saphenous Vein * Femoral Vein Popliteal Vein Small Saphenous Vein * Proximal Calf Veins (* superficial vessels) Right Leg: Appears negative for DVT Grayscale, color doppler, spectral doppler imaging performed of the deep veins of the right lower ext remity. There is normal flow, compressibility, vascular waveforms. IMPRESSION: No ultrasound evidence for acute DVT in the right lower extremity.
== END | disposition home or self-care (01) ==
LOC: RADUSWWP 15:04
PROVIDERS: ATTEND Emergency Medicine
DX: S83.91XA Sprain of unspecified site of right knee, initial encounter (principal); S86.111A Strain of other muscle(s) and tendon(s) of posterior muscle group at lower leg level, right leg, initial encounter; M79.661 Pain in right lower leg; X58.XXXA Exposure to other specified factors, initial encounter

== ENCOUNTER → 2022-01-17 | Outpatient (CLI) | payer BC ==
--- NOTE | 2022-01-19 11:35 | MM ---
Reason for exam: screening (asymptomatic). Baseline mammogram. History: Patient is nulliparous. Physical Findings: A clinical breast exam by your physician is recommended on an annual basis and results should be correlated with mammographic findings. MG 3D Screening Mammo W/Cad Bilateral CC and MLO view(s) were taken. The breast tissue is heterogeneously dense. This may lower the sensitivity of mammography. There are benign appearing round, regional calcifications bilaterally. There is no discrete abnormality. Symmetric nodularity towards bilateral axilla, favor benign lymph nodes. ASSESSMENT: Benign, BI-RAD 2 RECOMMENDATION: Routine screening mammogram of both breasts at age 41.
== END | disposition home or self-care (01) ==
LOC: RADMAMWWP 15:57
PROVIDERS: ATTEND Obstetrics & Gynecology
DX: Z12.31 Encounter for screening mammogram for malignant neoplasm of breast (principal)
CPT/HCPCS: 77063; 77067

== ENCOUNTER → 2023-06-03 | Outpatient (CLI) | payer BC ==
--- NOTE | 2023-06-03 15:45 | US ---
EXAMINATION TYPE: US thyroid st tissue head/neck DATE OF EXAM: 06/03/2023 COMPARISON: US thyroid 11/24/2021, 03/16/2021, 11/27/2019 CLINICAL INDICATION: Female, 37 years old with history of E04.2 MULTINODULAR GOITER; F/U nodules GLAND SIZE: Right Lobe: 5.1 x 1.4 x 1.5 cm Overall Parenchyma: homogenous Left Lobe: 5.0 x 1.4 x 1.6 cm Overall Parenchyma: homogeneous Isthmus Thickness: 0.3 cm NODULES RIGHT: # of nodules measured on right: 1 1. 0.8 X 0.9 x 0.8 cm, lower, solid or almost completely solid, isoechoic nodule, which is wider th an tall, with smooth margins, without echogenic foci. Prior size: 0.8 x 0.9 x 0.7 cm LEFT: # of nodules measured on left: 2 1. 1.1 X 0.7 x 0.8 cm, lower, solid or almost completely solid, hypoechoic nodule, which is wider t douglass tall, with smooth margins, without echogenic foci. Prior size: 1.0 x 0.6 x 0.9 cm 2. 1.4 X 0.8 x 1.1 cm, lower, solid or almost completely solid, isoechoic nodule, which is wider t douglass tall, with smooth margins, without echogenic foci. Prior size: 1.4 x 0.7 x 1.1 cm ISTHMUS: # of nodules measured in the isthmus: 0 Bilateral neck scanned, no evidence of lymphadenopathy. Stable nodules bilaterally. IMPRESSION: Stable bilateral thyroid nodules. No new or enlarging thyroid nodules.
== END | disposition home or self-care (01) ==
LOC: RADUSWWP 15:03
PROVIDERS: ATTEND Family Medicine
DX: E04.2 Nontoxic multinodular goiter (principal)
CPT/HCPCS: 76536

== ENCOUNTER 2023-10-08 07:51 | Emergency (ER) | payer BC ==
[2023-10-08 09:42] LABS: Amphetamine Screen,Urine Not Detected (NotDetected); Barbiturate Screen,Urine Not Detected (NotDetected); Benzodiazepines Screen,Urine Detected (NotDetected); Cocaine Screen,Urine Not Detected (NotDetected); Methadone Screen, Urine Not Detected (NotDetected); Opiate Screen,Urine Not Detected (NotDetected); Oxycodone Screen, Urine Not Detected (NotDetected); Phencyclidine Screen,Urine Not Detected (NotDetected); Tricyclic Antidepressant,Urine Not Detected (NotDetected); Urn Cannabinoid Scrn Not Detected (NotDetected)
--- NOTE | 2023-10-08 10:03 | ED ---
Psych HPI - General Chief Complaint: Psychiatric Symptoms Stated Complaint: mental health Time Seen by Provider: 10/08/23 09:36 Source: patient, family, RN notes reviewed Mode of arrival: ambulatory Limitations: no limitations - History of Present Illness Initial Comments: 37-year-old female presents emergency department chief complaint depression, since ideation. Patient does have a history of bipolar disorder. She was switching to a new medication but there is some pharmacy issues. She is not on any current medications. She was advised to come to the emergency department for psychiatric evaluation for possible hospitalization. She does admit to increased anxiety, depression and has had thoughts of suicide in the past. - Related Data Home Medications Medication Instructions Recorded Confirmed ALPRAZolam [Xanax] 1 mg PO DAILY PRN 10/08/23 10/08/23 ARIPiprazole [Abilify] 10 mg PO DAILY 10/08/23 10/08/23 Cariprazine HCl [Vraylar] 1.5 mg PO DAILY 10/08/23 10/08/23 Dextroamphetamine/Amphetamine 25 mg PO DAILY 10/08/23 10/08/23 [Adderall Xr 25 mg Capsule] [place] Carbonate 150 mg PO BID 10/08/23 10/08/23 Norethindrone [Sona] 0.35 mg PO DAILY 10/08/23 10/08/23 Sertraline [Zoloft] 50 mg PO DAILY 10/08/23 10/08/23 Allergies Allergy/AdvReac Type Severity Reaction Status Date / Time No Known Allergies Allergy Verified 10/08/23 10:42 Review of Systems ROS Statement: Those systems with pertinent positive or pertinent negative responses have been documented in the HPI. ROS Other: All systems not noted in ROS Statement are negative. Past Medical History Past Medical History: Thyroid Disorder Additional Past Medical History / Comment(s): recent weight gain 08/2015 History of Any Multi-Drug Resistant Organisms: None Reported Past Surgical History: Tonsillectomy Past Anesthesia/Blood Transfusion Reactions: No Reported Reaction Past Psychological History: Anxiety, Bipolar, Depression Smoking Status: Vaper Past Alcohol Use History: Occasional Past Drug Use History: Marijuana - Past Family History Father Family Medical History: Hypertension General Exam Limitations: no limitations General appearance: alert, in no apparent distress Head exam: Present: atraumatic, normocephalic, normal inspection Eye exam: Present: normal appearance, PERRL, EOMI. Absent: scleral icterus, conjunctival injection, periorbital swelling ENT exam: Present: normal exam, normal oropharynx, mucous membranes moist Neck exam: Present: normal inspection, full ROM. Absent: tenderness, meningismus, lymphadenopathy Respiratory exam: Present: normal lung sounds bilaterally. Absent: respiratory distress, wheezes, rales, rhonchi, stridor Cardiovascular Exam: Present: regular rate, normal rhythm, normal heart sounds. Absent: systolic murmur, diastolic murmur, rubs, gallop, clicks Neurological exam: Present: alert, oriented X3, CN II-XII intact Psychiatric exam: Present: depressed, flat affect Skin exam: Present: warm, dry, intact, normal color. Absent: rash Course Vital Signs 10/08/23 08:00 Temperature 98 F Pulse Rate 87 Respiratory 18 Rate Blood Pressure 98/66 O2 Sat by Pulse 98 Oximetry Medical Decision Making - Medical Decision Making Was pt. sent in by a medical professional or institution (, PA, CORPORATE QUALITY ENGINEER, urgent care, hospital, or assisted...) When possible be specific @ -No Did you speak to anyone other than the patient for history (EMS, parent, family, police, friend...)? What history was obtained from this source @ -[N parents regarding past medical history Did you review nursing and triage notes (agree or disagree)? Why? @ -I reviewed and agree with nursing and triage notes Were old charts reviewed (outside hosp., previous admission, EMS record, old EKG, old radiological studies, urgent care reports/EKG's, assisted records)? Report findings @ -No old charts were reviewed Differential Diagnosis (chest pain, altered mental status, abdominal pain women, abdominal pain men, vaginal bleeding, weakness, fever, dyspnea, syncope, headache, dizziness, GI bleed, back pain, seizure, CVA, palpatations, mental health, musculoskeletal)? @ -[Differential Mental Health Depression, anxiety, bipolar, psychosis, schizophrenia, borderline personality, situational depression, adjustment disorder, behavioral disorder, brain tumor, malingering, substance abuse, encephalopathy, medication reaction, dementia, hypothyroidism, degenerative neurologic disorder, lupus.... This is not meant to be all-inclusive list EKG interpreted by me (3pts min.). @ -None X-rays interpreted by me (1pt min.). @ -None done CT interpreted by me (1pt min.). @ -None done U/S interpreted by me (1pt. min.). @ -None done What testing was considered but not performed or refused? (CT, X-rays, U/S, labs)? Why? @ -None What meds were considered but not given or refused? Why? @ -None Did you discuss the management of the patient with other professionals (professionals i.e. DrCleo, PA, CORPORATE QUALITY ENGINEER, lab, RT, psych nurse, social media sr strategy manager, icing coater, teacher, chief contract officer, casework specialist)? Give summary @ -EPS evaluated the patient and discussed case with psychiatrist recommends patient to be admitted to psychiatric services Was smoking cessation discussed for >3mins.? @ -No Was critical care preformed (if so, how long)? @ -No Were there social determinants of health that impacted care today? How? (Homelessness, low income, unemployed, alcoholism, drug addiction, transportation, low edu. Level, literacy, decrease access to med. care, snf, rehab)? @ -No Was there de-escalation of care discussed even if they declined (Discuss DNR or withdrawal of care, Hospice)? DNR status @ -No What co-morbidities impacted this encounter? (DM, HTN, Smoking, COPD, CAD, Cancer, CVA, ARF, Chemo, Hep., AIDS, mental health diagnosis, sleep apnea, morbid obesity)? @ -None Was patient admitted / discharged? Hospital course, mention meds given and route, prescriptions, significant lab abnormalities, going to OR and other pertinent info. @ -Hospital course Undiagnosed new problem with uncertain prognosis? @ -No Drug Therapy requiring intensive monitoring for toxicity (Heparin, Nitro, Insulin, Cardizem)? @ -No Were any procedures done? @ -No Diagnosis/symptom? @ -[Bipolar, depression, suicide ideation Acute, or Chronic, or Acute on Chronic? @ -Acute Uncomplicated (without systemic symptoms) or Complicated (systemic symptoms)? @ -[complicated Side effects of treatment? @ -No Exacerbation, Progression, or Severe Exacerbation? @ -No Poses a threat to life or bodily function? How? (Chest pain, [place], [place], pneumonia, PE, COPD, DKA, ARF, appy, cholecystitis, CVA, Diverticulitis, Homicidal, Suicidal, threat to staff... and all critical care pts) @ -Yes patient is suicidal - Lab Data Lab Results 10/08/23 10/08/23 Range/Units 08:07 09:14 Urine Opiates Screen Not Detected (NotDetected) Ur Oxycodone Screen Not Detected (NotDetected) Urine Methadone Screen Not Detected (NotDetected) Ur Barbiturates Screen Not Detected (NotDetected) U Tricyclic Antidepress Not Detected (NotDetected) Ur Phencyclidine Scrn Not Detected (NotDetected) Ur Amphetamines Screen Not Detected (NotDetected) U Methamphetamines Scrn Not Detected (NotDetected) U Benzodiazepines Scrn Detected H (NotDetected) Urine Cocaine Screen Not Detected (NotDetected) U Marijuana (THC) Screen Not Detected (NotDetected) Influenza Type A (PCR) Not Detected (Not Detectd) Influenza Type B (PCR) Not Detected (Not Detectd) RSV (PCR) Not Detected (Not Detectd) SARS-CoV-2 (PCR) Not Detected (Not Detectd) Disposition Clinical Impression: Depression, Suicidal ideation, Bipolar disorder Disposition: TRANSFER TO PSYCH HOSP/UNIT Condition: Fair Referrals: Jitendra Montgomery DO [Primary Care Provider] - 1-2 days Time of Disposition: 15:33
[2023-10-08 16:47] LABS: Basophils # (A) 0.1 k/uL (0-0.2); Basophils % (A) 1 %; Eosinophils # (A) 0.4 k/uL (0-0.7); Eosinophils % (A) 5 %; HGB 14.6 gm/dL (11.4-16.0); Lymphocytes # (A) 2.8 k/uL (1.0-4.8); Lymphocytes % (A) 32 %; MCH 32.4 pg (25.0-35.0); MCHC 33.9 g/dL (31.0-37.0); MCV 95.4 fL (80.0-100.0); Mean Platelet Volume 8.4; Monocytes # (A) 0.5 k/uL (0-1.0); Monocytes % (A) 6 %; Neutrophils # (A) 4.9 k/uL (1.3-7.7); Neutrophils % (A) 56 %; Platelet Count 294 k/uL (150-450); RBC 4.51 m/uL (3.80-5.40); RDW 12.4 % (11.5-15.5); WBC 8.8 k/uL (3.8-10.6)
[2023-10-08 16:58] LABS: ALT 26 U/L (4-34); AST 18 U/L (14-36); African American GFR (CKD) >90 (>60 ml/min/1.73 sqM); Albumin 4.3 g/dL (3.5-5.0); Alkaline Phosphatase 73 U/L (38-126); Anion Gap 7 mmol/L; Blood Urea Nitrogen 11 mg/dL (7-17); Calcium 9.8 mg/dL (8.4-10.2); Carbon Dioxide 29 mmol/L (22-30); Chloride 104 mmol/L (98-107); Glucose 97 mg/dL (74-99); Non-African American GFR(CKD) >90 (>60 ml/min/1.73 sqM); Potassium 4.4 mmol/L (3.5-5.1); Sodium 140 mmol/L (137-145); Total Bilirubin 0.8 mg/dL (0.2-1.3); Total Protein 7.1 g/dL (6.3-8.2)
[2023-10-08 18:49] LABS: Appearance,Urine Cloudy (Clear); Bacteria,Urine Rare /hpf; Bilirubin,Urine Negative (Negative); Blood,Urine Negative (Negative); Color,Urine Light Yellow; Glucose,Urine (UA) Negative (Negative); Ketones,Urine Negative (Negative); Leukocyte Esterase,Urine Negative (Negative); Mucus,Urine Few /hpf; Nitrite,Urine Negative (Negative); PH, Urine 7.5 (5.0-8.0); Protein,Urine Negative (Negative); RBC,Urine 4 /hpf (0-5); Specific Gravity,Urine 1.025 (1.001-1.035); Squamous Epithelial Cell,Urine 5 /hpf (0-4); Urobilinogen,Urine <2.0 mg/dL (<2.0); WBC,Urine 1 /hpf (0-5)
[2023-10-09] MEDS ORDERED: ALPRAZolam 1 MG TAB PO STA (00:01)
[2023-10-09 09:30] VITALS: BP 117/80; PULSE 99; RESP 18; TEMP 97.8
== END 2023-10-09 09:20 ==
LOC: EC 07:51
DX: R45.851 Suicidal ideations (principal); F31.9 Bipolar disorder, unspecified; F41.9 Anxiety disorder, unspecified; F12.90 Cannabis use, unspecified, uncomplicated; F17.290 Nicotine dependence, other tobacco product, uncomplicated; Z79.899 Other long term (current) drug therapy; Z20.822 Contact with and (suspected) exposure to COVID-19
CPT/HCPCS: 36415; 80053; 80306; 81001; 81025; 82075; 85025; 87636; 99285

== ENCOUNTER 2024-09-06 02:53 | Emergency (ER) | payer BC ==
[2024-09-06 03:08] VITALS: TEMP 98.5
--- NOTE | 2024-09-06 03:15 | ED ---
Fall HPI - General Chief Complaint: Fall Stated Complaint: Fall, head injury Time Seen by Provider: 09/06/24 03:00 Source: patient, RN notes reviewed, old records reviewed Mode of arrival: ambulatory Limitations: no limitations - History of Present Illness Initial Comments: This is a 38-year-old female to the ER for evaluation of head injury. Fall resu lting in head injury secondary to intoxication, her head and face did scrape against her dresser in her room. 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 Fall Witnessed: yes, by family, yes, by bystander Place Fall Occurred: home Loss of Consciousness: none Prolonged Down Time?: no Symptoms Prior to Fall: none Location: head, face Severity: severe Context: tripped/slipped, alcohol use Associated Symptoms: denies - Related Data Home Medications Medication Instructions Recorded Confirmed ALPRAZolam [Xanax] 1 mg PO DAILY PRN 10/08/23 10/08/23 ARIPiprazole [Abilify] 10 mg PO DAILY 10/08/23 10/08/23 Cariprazine HCl [Vraylar] 1.5 mg PO DAILY 10/08/23 10/08/23 Dextroamphetamine/Amphetamine 25 mg PO DAILY 10/08/23 10/08/23 [Adderall Xr 25 mg Capsule] [place] Carbonate 150 mg PO BID 10/08/23 10/08/23 Norethindrone [Sona] 0.35 mg PO DAILY 10/08/23 10/08/23 Sertraline [Zoloft] 50 mg PO DAILY 10/08/23 10/08/23 Allergies Allergy/AdvReac Type Severity Reaction Status Date / Time No Known Allergies Allergy Verified 10/08/23 10:42 Review of Systems ROS Statement: Those systems with pertinent positive or pertinent negative responses have been documented in the HPI. ROS Other: All systems not noted in ROS Statement are negative. Past Medical History Past Medical History: Thyroid Disorder Additional Past Medical History / Comment(s): recent weight gain 08/2015 History of Any Multi-Drug Resistant Organisms: None Reported Past Surgical History: Tonsillectomy Past Anesthesia/Blood Transfusion Reactions: No Reported Reaction Past Psychological History: Anxiety, Bipolar, Depression Smoking Status: Vaper Past Alcohol Use History: Occasional Past Drug Use History: Marijuana - Past Family History Father Family Medical History: Hypertension General Exam Limitations: no limitations General appearance: alert, in no apparent distress Head exam: Present: atraumatic, normocephalic, normal inspection Eye exam: Present: normal appearance, PERRL, EOMI. Absent: scleral icterus, conjunctival injection, periorbital swelling ENT exam: Present: normal exam, mucous membranes moist Neck exam: Present: normal inspection. Absent: tenderness, meningismus, lymphadenopathy Respiratory exam: Present: normal lung sounds bilaterally. Absent: respiratory distress, wheezes, rales, rhonchi, stridor Cardiovascular Exam: Present: regular rate, normal rhythm, normal heart sounds. Absent: systolic murmur, diastolic murmur, rubs, gallop, clicks GI/Abdominal exam: Present: soft, normal bowel sounds. Absent: distended, tenderness, guarding, rebound, rigid Extremities exam: Present: normal inspection, full ROM, normal capillary refill. Absent: tenderness, pedal edema, joint swelling, calf tenderness Back exam: Present: normal inspection Neurological exam: Present: alert, oriented X3, CN II-XII intact Psychiatric exam: Present: normal affect, normal mood Skin exam: Present: warm, dry, intact, normal color. Absent: rash Course Vital Signs 09/06/24 03:03 Temperature 98.5 F Pulse Rate 88 Respiratory 20 Rate Blood Pressure 113/79 O2 Sat by Pulse 98 Oximetry - Reevaluation(s) Reevaluation #1: 09/06/24 03:33 Medical records reviewed Reevaluation #2: 09/06/24 03:33 Patient symptoms unchanged Reevaluation #3: 09/06/24 03:33 Patient informed of results questions answered Reevaluation #4: Was pt. sent in by a medical professional or institution (, PA, PACU RN, urgent care, hospital, or senior care...) When possible be specific @ -no Did you speak to anyone other than the patient for history (EMS, parent, family, police, friend...)? What history was obtained from this source @ -no Did you review nursing and triage notes (agree or disagree)? Why? @ -agree Are old charts reviewed (outside hosp., previous admission, EMS record, old EKG, old radiological studies, urgent care reports/EKG's, senior care records)? Report findings @ -yes Differential Diagnosis (chest pain, altered mental status, abdominal pain women, abdominal pain men, vaginal bleeding, weakness, fever, dyspnea, syncope, headache, dizziness, GI bleed, back pain, seizure, CVA, palpatations, mental health, musculoskeletal)? @ -prior EKG interpreted by me (3pts min.). @ -yes X-rays interpreted by me (1pt min.). @ -yes negative for acute disease CT interpreted by me (1pt min.). @ -no U/S interpreted by me (1pt. min.). @ -no What testing was considered but not performed or refused? (CT, X-rays, U/S, labs)? Why? @ -none What meds were considered but not given or refused? Why? @ -none Did you discuss the management of the patient with other professionals (professionals i.e. , PA, PACU RN, lab, RT, psych nurse, social work nurse, reliability technologist, teacher, chief revenue officer, case management assistant)? Give summary @ -no Was smoking cessation discussed for >3mins.? @ -no Was critical care preformed (if so, how long)? @ -no Were there social determinants of health that impacted care today? How? (Homelessness, low income, unemployed, alcoholism, drug addiction, transport ation, low edu. Level, literacy, decrease access to med. care, snf, rehab)? @ -none Was there de-escalation of care discussed even if they declined (Discuss DNR or withdrawal of care, Hospice)? DNR status @ -no What co-morbidities impacted this encounter? (DM, HTN, Smoking, COPD, CAD, Cancer, CVA, ARF, Chemo, Hep., AIDS, mental health diagnosis, sleep apnea, morbid obesity)? @ -none Was patient admitted / discharged? Hospital course, mention meds given and route, prescriptions, significant lab abnormalities, going to OR and other pertinent info. @ - Undiagnosed new problem with uncertain prognosis? @ -no Drug Therapy requiring intensive monitoring for toxicity (Heparin, Nitro, Insulin, Cardizem)? @ -no Were any procedures done? @ -no Diagnosis/symptom? @ - Acute, or Chronic, or Acute on Chronic? @ -Acute Uncomplicated (without systemic symptoms) or Complicated (systemic symptoms)? @ -Complicated Side effects of treatment? @ -no Exacerbation, Progression, or Severe Exacerbation? @ -exacerbation Poses a threat to life or bodily function? How? (Chest pain, [place], [place], pneumonia, PE, COPD, DKA, ARF, appy, cholecystitis, CVA, Diverticulitis, Homicidal, Suicidal, threat to staff... and all critical care pts) @ -yes Medical Decision Making - Medical Decision Making 38 female after head injury with alcohol intoxication no traumatic injury noted patient can be discharged home - Radiology Data Radiology results: report reviewed (CT brain C-spine negative for acute disease), image reviewed Disposition Clinical Impression: Fall, Alcohol intoxication, Head injury Disposition: HOME SELF-CARE Condition: Good Instructions (If sedation given, give patient instructions): Head Injury (ED), Alcohol Intoxication (ED) Is patient prescribed a controlled substance at d/c from ED?: No Referrals: Jitendra Montgomery DO [Primary Care Provider] - 1-2 days Time of Disposition: 04:00
--- NOTE | 2024-09-06 03:47 | CT ---
EXAM: CT Head Without Intravenous Contrast CLINICAL HISTORY: ITS.REASON CT Reason: fall TECHNIQUE: Axial computed tomography images of the head/brain without intravenous contrast. CTDI is 45.2 mGy and DLP is 978.5 mGy-cm. This CT exam was performed using one or more of the following dose reduction techniques: automated exposure control, adjustment of the mA and/or kV according to patient size, and/or use of iterative reconstruction technique. COMPARISON: No relevant prior studies available. FINDINGS: Brain: No hemorrhage or mass effect. Ventricles: No hydrocephalus. Bones/joints: Unremarkable. Soft tissues: Unremarkable. Sinuses: No air fluid level. Mild paranasal sinus mucosal thickening Mastoid air cells: Clear. IMPRESSION: No acute hemorrhage, hydrocephalus, or mass effect. EXAM: CT Cervical Spine Without Intravenous Contrast CLINICAL HISTORY: ITS.REASON CT Reason: fall TECHNIQUE: Axial computed tomography images of the cervical spine without intravenous contrast. CTDI is 14.9 mGy and DLP is 393.3 mGy-cm. This CT exam was performed using one or more of the following dose reduction techniques: automated exposure control, adjustment of the mA and/or kV according to patient size, and/or use of iterative reconstruction technique. COMPARISON: No relevant prior studies available. FINDINGS: Vertebrae: No acute fracture. Discs/spinal canal/neural foramina: mild degenerative changes. Soft tissues: No prevertebral swelling. IMPRESSION: No acute fracture or subluxation.
[2024-09-06 04:15] VITALS: BP 125/82; PULSE 75; RESP 18
== END 2024-09-06 04:14 | disposition home or self-care (01) ==
LOC: EC 02:53
DX: S09.90XA Unspecified injury of head, initial encounter (principal); F10.129 Alcohol abuse with intoxication, unspecified; F17.290 Nicotine dependence, other tobacco product, uncomplicated; W18.30XA Fall on same level, unspecified, initial encounter
CPT/HCPCS: 70450; 72125; 99283